=== PATIENT | female | born 1970 | race Caucasian/White ===

== ENCOUNTER 2018-04-14 05:57 | Emergency (ER) | payer BC ==
[2018-04-14] MEDS ORDERED: Ketorolac 60 MG/2 ML SDV IM ONE (06:13)
[2018-04-14] MEDS ORDERED: Ondansetron 4 MG Tab.DIS PO ONE (06:13)
[2018-04-14] MEDS ORDERED: Lactated Ringers 1,000 ML IV ONE ×2 (06:26→08:23)
[2018-04-14] MEDS ORDERED: Sodium Chloride 0.9% 10 ML Syringe FLUSH PRN (06:26)
--- NOTE | 2018-04-14 06:29 | EDM.PDOC ---
<Vahe Dhillon G - Last Filed: 04/14/18 12:02> ED HPI GENERAL MEDICAL PROBLEM - General Chief Complaint: Flank Pain Stated Complaint: KIDNEY STONE Time Seen by Provider: 04/14/18 06:23 Right Flank Pain Score (Numeric/FACES): 7 - Related Data Allergies Allergy/AdvReac Type Severity Reaction Status Date / Time No Known Allergies Allergy Verified 04/14/18 06:04 Home Meds: Home Meds Acetaminophen/oxyCODONE [Percocet 325-7.5 MG] 1 - 2 tab PO Q4H PRN #10 tab 04/14 [Rx] Cephalexin 500 mg PO TID #14 tablet 04/14/18 [Rx] Lisinopril 1 tab PO DAILY 04/14/18 [History] Ondansetron [Zofran ODT] 4 mg PO Q6H PRN #7 tab.dis 04/14/18 [Rx] Course - Vital Signs Text/Narrative:: Sleeping peacefully when checked @ 1200h, says she's been sleeping about an hour. Last Recorded V/S: Last Vital Signs Temp 97.6 F 04/14/18 13:11 Pulse 71 04/14/18 13:36 Resp 16 04/14/18 13:36 BP 120/68 04/14/18 13:36 Pulse Ox 97 04/14/18 13:36 - Orders/Labs/Meds Orders: Active Orders 24 hr Category Date Time Status Peripheral IV Care [RC] . DIRECTED Care 04/14/18 06:26 Active Abdomen Pelvis wo Cont [CT] Stat Exams 04/14/18 06:26 Taken CULTURE URINE [RM] Stat Lab 04/14/18 10:07 Ordered UA W/MICROSCOPIC [URIN] Urgent Lab 04/14/18 09:33 Ordered Peripheral IV Insertion Adult [OM.PC] Urgent Oth 04/14/18 06:25 Ordered Labs: Laboratory Tests 04/14/18 04/14/18 04/14/18 Range/Units 07:02 07:02 09:33 WBC 8.5 (4.5-11.0) K/uL RBC 3.93 (3.30-5.50) M/uL Hgb 11.8 L (12.0-15.0) g/dL Hct 36.4 (36.0-48.0) % MCV 93 (80-98) fL MCH 30 (27-31) pg MCHC 32 (32-36) % Plt Count 254 (150-400) K/uL Neut % (Auto) 69 H (36-66) % Lymph % (Auto) 23 L (24-44) % [place] % (Auto) 6 (2-6) % Eos % (Auto) 2 (2-4) % Baso % (Auto) 1 (0-1) % Sodium 139 L (140-148) mmol/L Potassium 3.7 (3.6-5.2) mmol/L Chloride 105 (100-108) mmol/L Carbon Dioxide 25 (21-32) mmol/L Anion Gap 12.7 (5.0-14.0) mmol/L BUN 13 (7-18) mg/dL Creatinine 0.9 (0.6-1.0) mg/dL Est Cr Clr Drug Dosing 58.94 mL/min Estimated GFR (MDRD) > 60 (>60) Glucose 201 H (74-106) mg/dL Calcium 8.1 L (8.5-10.1) mg/dL Urine Color Yellow Urine Appearance Turbid Urine pH 5.0 (4.5-8.0) Ur Specific [place] 1.030 (1.008-1.030) Urine Protein Trace (NEGATIVE) mg/dL Urine Glucose (UA) 250 H (NEGATIVE) mg/dL Urine Ketones 15 H (NEGATIVE) mg/dL Urine Occult Blood Large (NEGATIVE) Urine Nitrite Negative (NEGATIVE) Urine Bilirubin Small (NEGATIVE) Urine Urobilinogen Normal (NORMAL) mg/dL Ur Leukocyte Esterase Moderate (NEGATIVE) Urine RBC 0-5 (0-5) Urine WBC 10-20 H (0-5) Ur Epithelial Cells Many Amorphous Sediment Many Urine Bacteria Moderate Urine Mucus Not seen Meds: Medications Discontinued Medications Generic Name Dose Route Start Last Admin Trade Name Freq PRN Reason Stop Dose Admin Cephalexin 500 mg 04/14/18 10:04 04/14/18 10:32 Keflex PO 04/14/18 10:05 500 mg ONETIME ONE Administration Fentanyl 50 mcg 04/14/18 06:34 04/14/18 06:38 Sublimaze IVPUSH 04/14/18 06:35 50 mcg ONETIME ONE Administration Fentanyl 100 mcg 04/14/18 07:17 04/14/18 07:28 Sublimaze IVPUSH 04/14/18 07:18 100 mcg ONETIME ONE Administration Fentanyl 100 mcg 04/14/18 08:05 04/14/18 08:17 Sublimaze IVPUSH 04/14/18 08:06 100 mcg ONETIME ONE Administration Hydromorphone HCl 0.5 mg 04/14/18 10:25 04/14/18 10:32 Dilaudid IVPUSH 04/14/18 10:26 0.5 mg ONETIME ONE Administration Lactated Ringer's 1,000 mls @ 999 mls/hr 04/14/18 06:26 04/14/18 06:39 Ringers, Lactated IV 04/14/18 07:26 999 mls/hr BOLUS ONE Administration Lactated Ringer's 1,000 mls @ 999 mls/hr 04/14/18 08:23 04/14/18 08:25 Ringers, Lactated IV 04/14/18 09:23 999 mls/hr BOLUS ONE Administration Ketorolac Tromethamine 60 mg 04/14/18 06:13 04/14/18 06:17 Toradol IM 04/14/18 06:14 60 mg ONETIME ONE Administration Lidocaine HCl 120 mg 04/14/18 09:32 04/14/18 09:52 Xylocaine 2% 1 mg/kg (120 mg) 04/14/18 09:33 120 mg IVPUSH Administration ONETIME ONE Ondansetron HCl 4 mg 04/14/18 06:13 04/14/18 06:17 Zofran Odt PO 04/14/18 06:14 4 mg ONETIME ONE Administration Ondansetron HCl 4 mg 04/14/18 07:15 04/14/18 07:26 Zofran IVPUSH 04/14/18 07:16 4 mg ONETIME ONE Administration Oxycodone/Acetaminophen 1 tab 04/14/18 13:19 04/14/18 13:25 Percocet 325-5 Mg PO 04/14/18 13:20 1 tab ONETIME ONE Administration Sodium Chloride 10 ml 04/14/18 06:26 04/14/18 06:39 Saline Flush FLUSH 10 ml ASDIRECTED PRN Administration Keep Vein Open - Radiology Interpretation Free Text/Narrative:: 2 mm stone at the R UPJ per CT with stone protocol. CT Results Date: 04/14/18 CT Results Time: 07:50 Departure - Departure Disposition: Home, Self-Care 01 Clinical Impression: Right flank pain - Discharge Information Prescriptions: Acetaminophen/oxyCODONE [Percocet 325-7.5 MG] 1 - 2 tab PO Q4H PRN #10 tab PRN Reason: Pain Cephalexin 500 mg PO TID #14 tablet Ondansetron [Zofran ODT] 4 mg PO Q6H PRN #7 tab.dis PRN Reason: Nausea Instructions: Kidney Stones, [id number] Referrals: PCP,None [Primary Care Provider] - Forms: ED Department Discharge Additional Instructions: Drink ample fluids. Take Rx as directed. Strain your urine and save any sediment for testing. Recheck in the clinic on , call for an appt. Return as needed. No driving when taking Percocet. - My Orders Last 24 Hours: My Active Orders 04/14/18 06:25 Peripheral IV Insertion Adult [OM.PC] Urgent 04/14/18 06:26 Peripheral IV Care [RC] . DIRECTED Abdomen Pelvis wo Cont [CT] Stat 04/14/18 09:33 UA W/MICROSCOPIC [URIN] Urgent - Assessment/Plan Last 24 Hours: My Active Orders 04/14/18 06:25 Peripheral IV Insertion Adult [OM.PC] Urgent 04/14/18 06:26 Peripheral IV Care [RC] . DIRECTED Abdomen Pelvis wo Cont [CT] Stat 04/14/18 09:33 UA W/MICROSCOPIC [URIN] Urgent <EmilyrTom - Last Filed: 04/15/18 06:54> ED HPI GENERAL MEDICAL PROBLEM - General Source of Information: Reports: Patient, Family, RN Notes Reviewed History Limitations: Reports: No Limitations - History of Present Illness INITIAL COMMENTS - FREE TEXT/NARRATIVE: 47-year-old female presents to the emergency department complaint of right flank pain, she has a known history of nephrolithiasis she feels this is very similar pain is really developed over the last 12 hours has nausea and vomiting pain starts in her low back shoots down into her leg Past Medical History HEENT History: Reports: Impaired Vision Cardiovascular History: Reports: Hypertension Genitourinary History: Reports: Renal Calculus [employer] SPECIALIST History: Reports: Musculoskeletal History: Reports: Fracture - Infectious Disease History Infectious Disease History: Reports: Chicken Pox Social & Family History - Family History Family Medical History: Noncontributory - Tobacco Use Smoking Status *Q: Never Smoker - Caffeine Use Caffeine Use: Reports: Coffee - Recreational Drug Use Recreational Drug Use: No ED ROS GENERAL - Review of Systems Review Of Systems: See Below Constitutional: Denies: Fever, Chills HEENT: Reports: No Symptoms Respiratory: Reports: No Symptoms Cardiovascular: Reports: No Symptoms GI/Abdominal: Reports: Nausea, Vomiting : Reports: Flank Pain Musculoskeletal: Reports: No Symptoms Skin: Reports: No Symptoms ED EXAM, RENAL/ - Physical Exam Exam: See Below Exam Limited By: No Limitations General Appearance: Alert, Mild Distress Respiratory/Chest: No Respiratory Distress, Lungs Clear, Normal Breath Sounds, No Accessory Muscle Use Cardiovascular: Regular Rate, Rhythm, No Murmur GI/Abdominal: Soft, Tender (Along the right flank area) Back Exam: Normal Inspection, Full Range of Motion, CVA Tenderness (R). No: CVA Tenderness (L) Extremities: Normal Inspection Course - Orders/Labs/Meds Labs: Laboratory Tests 04/14/18 04/14/18 04/14/18 Range/Units 07:02 07:02 09:33 WBC 8.5 (4.5-11.0) K/uL RBC 3.93 (3.30-5.50) M/uL Hgb 11.8 L (12.0-15.0) g/dL Hct 36.4 (36.0-48.0) % MCV 93 (80-98) fL MCH 30 (27-31) pg MCHC 32 (32-36) % Plt Count 254 (150-400) K/uL Neut % (Auto) 69 H (36-66) % Lymph % (Auto) 23 L (24-44) % [place] % (Auto) 6 (2-6) % Eos % (Auto) 2 (2-4) % Baso % (Auto) 1 (0-1) % Sodium 139 L (140-148) mmol/L Potassium 3.7 (3.6-5.2) mmol/L Chloride 105 (100-108) mmol/L Carbon Dioxide 25 (21-32) mmol/L Anion Gap 12.7 (5.0-14.0) mmol/L BUN 13 (7-18) mg/dL Creatinine 0.9 (0.6-1.0) mg/dL Est Cr Clr Drug Dosing 58.94 mL/min Estimated GFR (MDRD) > 60 (>60) Glucose 201 H (74-106) mg/dL Calcium 8.1 L (8.5-10.1) mg/dL Urine Color Yellow Urine Appearance Turbid Urine pH 5.0 (4.5-8.0) Ur Specific [place] 1.030 (1.008-1.030) Urine Protein Trace (NEGATIVE) mg/dL Urine Glucose (UA) 250 H (NEGATIVE) mg/dL Urine Ketones 15 H (NEGATIVE) mg/dL Urine Occult Blood Large (NEGATIVE) Urine Nitrite Negative (NEGATIVE) Urine Bilirubin Small (NEGATIVE) Urine Urobilinogen Normal (NORMAL) mg/dL Ur Leukocyte Esterase Moderate (NEGATIVE) Urine RBC 0-5 (0-5) Urine WBC 10-20 H (0-5) Ur Epithelial Cells Many Amorphous Sediment Many Urine Bacteria Moderate Urine Mucus Not seen Departure - Departure Time of Disposition: 06:48
[2018-04-14] MEDS ORDERED: fentaNYL 100 MCG/2 ML SDV IVPUSH ONE ×3 (06:34→08:05)
[2018-04-14] MEDS ORDERED: Ondansetron 4 MG/2 ML SDV IVPUSH ONE (07:15)
[2018-04-14] MEDS ORDERED: Lidocaine 2% 100 MG/5 ML Syringe IVPUSH ONE (09:32)
[2018-04-14] MEDS ORDERED: Cephalexin 250 MG Cap PO ONE (10:04)
[2018-04-14] MEDS ORDERED: HYDROmorphone 0.5 MG/0.5 ML Syringe IVPUSH ONE (10:25)
[2018-04-14] MEDS ORDERED: Acetaminophen/oxyCODONE 325-5 MG Tab PO ONE (13:19)
== END 2018-04-14 13:53 | disposition home or self-care (01) ==
LOC: JP.ED 05:57
DX: R10.9 Unspecified abdominal pain (principal); I10 Essential (primary) hypertension; Z79.899 Other long term (current) drug therapy
CPT/HCPCS: 36415; 74176; 80048; 81001; 85025; 87086; 96361; 96372; 96374; 96375; 96376; 99284; A9270; J1170; J1885; J2405; J3010; J7050; J7120

== ENCOUNTER 2021-08-29 04:33 | Emergency (ER) | payer BC ==
[2021-08-29] MEDS ORDERED: Ketorolac 30 MG/ML SDV IM ONE (05:02)
[2021-08-29] MEDS ORDERED: Ondansetron 4 MG Tab.DIS PO ONE (05:02)
--- NOTE | 2021-08-29 05:05 | EDM.PDOC ---
ED HPI GENERAL MEDICAL PROBLEM - General Chief Complaint: Abdominal Pain Stated Complaint: KIDNEY STONES? Time Seen by Provider: 08/29/21 05:00 Source of Information: Reports: Patient, Family, RN Notes Reviewed History Limitations: Reports: No Limitations - History of Present Illness INITIAL COMMENTS - FREE TEXT/NARRATIVE: 51-year-old female presents emergency department day complaint of left flank pain she states it come on suddenly early this morning she has had kidney stones in the past the pain will get really intense and then relax. No fevers is nauseated has not taken anything for the pain Left Flank Pain Score (Numeric/FACES): 4 - Related Data Allergies Allergy/AdvReac Type Severity Reaction Status Date / Time No Known Allergies Allergy Verified 08/29/21 04:43 Home Meds: Home Meds Lisinopril 1 tab PO DAILY 04/14/18 [History] Norethindrone 1 tab PO DAILY 08/29/21 [History] Omeprazole 40 mg PO DAILY 08/29/21 [History] metFORMIN [Glucophage] 500 mg PO DAILY 08/29/21 [History] Past Medical History HEENT History: Reports: Impaired Vision Cardiovascular History: Reports: Hypertension Gastrointestinal History: Reports: GERD Genitourinary History: Reports: 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 History: Reports: Fracture Endocrine/Metabolic History: Reports: Diabetes, Type II - Infectious Disease History Infectious Disease History: Reports: Chicken Pox Social & Family History - Family History Family Medical History: No Pertinent Family History - Tobacco Use Tobacco Use Status *Q: Never Tobacco User Second Hand Smoke Exposure: No - Caffeine Use Caffeine Use: Reports: Coffee - Recreational Drug Use Recreational Drug Use: No ED ROS GENERAL - Review of Systems Review Of Systems: See Below Constitutional: Reports: No Symptoms Respiratory: Reports: No Symptoms Cardiovascular: Reports: No Symptoms GI/Abdominal: Reports: Abdominal Pain, Nausea : Reports: Flank Pain ED EXAM, GI/ABD - Physical Exam Exam: See Below Exam Limited By: No Limitations General Appearance: Alert, WD/WN, No Apparent Distress Respiratory/Chest: No Respiratory Distress, Lungs Clear, Normal Breath Sounds, No Accessory Muscle Use, Chest Non-Tender Cardiovascular: Regular Rate, Rhythm, No Murmur GI/Abdominal Exam: Soft, Tender (Tender along the left flank) Course - Vital Signs Last Recorded V/S: Last Vital Signs Temp 97.6 F 08/29/21 04:49 Pulse 78 08/29/21 05:30 Resp 16 08/29/21 05:30 BP 156/94 H 08/29/21 05:30 Pulse Ox 93 L 08/29/21 05:30 - Orders/Labs/Meds Orders: Active Orders 24 hr Category Date Time Status Sodium Chloride 0.9% [Normal Saline] 1,000 ml Med 08/29/21 05:15 Active IV ASDIRECTED Medication Orders Sodium Chloride (Normal Saline) 1,000 mls @ 500 mls/hr IV ASDIRECTED JOSE D Last Admin: 08/29/21 05:22 Dose: 500 mls/hr Documented by: RAGINI Labs: Laboratory Tests 08/29/21 Range/Units 04:59 Urine Color Yellow (YELLOW) Urine Appearance Cloudy A (CLEAR) Urine pH 5.5 (5.0-8.0) Ur Specific [place] >= 1.030 (1.008-1.030) Urine Protein 100 H (NEGATIVE) mg/dL Urine Glucose (UA) Negative (NEGATIVE) mg/dL Urine Ketones Negative (NEGATIVE) mg/dL Urine Occult Blood Large H (NEGATIVE) Urine Nitrite Negative (NEGATIVE) Urine Bilirubin Small H (NEGATIVE) Urine Urobilinogen 0.2 (0.2-1.0) EU/dL Ur Leukocyte Esterase Small H (NEGATIVE) Urine RBC >100 H (0-5) Urine WBC 10-20 H (0-5) Ur Epithelial Cells Moderate Amorphous Sediment Not seen Urine Bacteria Moderate Urine Mucus Not seen Meds: Medications Generic Name Dose Route Start Last Admin Trade Name Freq PRN Reason Stop Dose Admin Sodium Chloride 1,000 mls @ 500 mls/hr 08/29/21 05:15 08/29/21 05:22 Normal Saline IV 500 mls/hr ASDIRECTED JOSE D Administration Discontinued Medications Generic Name Dose Route Start Last Admin Trade Name Freq PRN Reason Stop Dose Admin Ketorolac Tromethamine 30 mg 08/29/21 05:02 08/29/21 05:50 Ketorolac 30 Mg/Ml Sdv IM 08/29/21 05:03 Not Given ONETIME ONE Ketorolac Tromethamine 30 mg 08/29/21 05:09 08/29/21 05:16 Ketorolac 30 Mg/Ml Sdv IVPUSH 08/29/21 05:10 30 mg ONETIME ONE Administration Ondansetron HCl 4 mg 08/29/21 05:02 08/29/21 05:10 Ondansetron 4 Mg Tab.Dis PO 08/29/21 05:03 4 mg ONETIME ONE Administration Ondansetron HCl 4 mg 08/29/21 05:09 08/29/21 05:25 Ondansetron 4 Mg/2 Ml Sdv IVPUSH 08/29/21 05:10 4 mg ONETIME ONE Administration Departure - Departure Time of Disposition: 07:13 Disposition: Home, Self-Care 01 Condition: Fair Clinical Impression: Nephrolithiasis - Discharge Information Instructions: Kidney Stones, [id number] Referrals: PCP,None [Primary Care Provider] - Forms: ED Department Discharge Additional Instructions: Use Pyridium as needed for bladder spasms, use Toradol as needed for pain control, please followup with your primary care provider in 3-5 days if not better, please call return to the emergency department with worsening of symptoms. Sepsis Event Note (ED) - Evaluation Sepsis Screening Result: No Definite Risk - Focused Exam Vital Signs: Vital Signs Temp Pulse Resp BP Pulse Ox 08/29/21 05:30 78 16 156/94 H 93 L 08/29/21 04:49 97.6 F 78 14 143/81 H 98 - My Orders Last 24 Hours: My Active Orders 08/29/21 05:15 Sodium Chloride 0.9% [Normal Saline] 1,000 ml IV ASDIRECTED - Assessment/Plan Last 24 Hours: My Active Orders 08/29/21 05:15 Sodium Chloride 0.9% [Normal Saline] 1,000 ml IV ASDIRECTED Plan: Assessment Acuity = acute Site and laterality = left-sided ureter distal nephrolithiasis Etiology = unknown Manifestations = flank pain Location of injury = Home Lab values = CT scan describes the stone above urinalysis reveals large amount of blood consistent with hematuria 10-20 WBCs consistent with pyuria Plan Good relief with Toradol and Zofran in the emergency department prescription for Toradol 10 mg 1 tab p.o. 3 times daily as needed as well as Pyridium 200 mg 1 tab p.o. 3 times daily x3 days follow-up primary care 3 to 5 days if no improvement This note was dictated using [employer] voice recognition software please call with any questions on syntax or grammar.
[2021-08-29] MEDS ORDERED: Ketorolac 30 MG/ML SDV IVPUSH ONE (05:09)
[2021-08-29] MEDS ORDERED: Ondansetron 4 MG/2 ML SDV IVPUSH ONE (05:09)
[2021-08-29] MEDS ORDERED: Sodium Chloride 0.9% 1,000 ML IV SCH (05:15)
--- NOTE | 2021-08-29 07:02 | CRLCT ---
For Patients: As a result of the Century Cures Act, medical imaging exams and procedure reports are released immediately into your electronic medical record. You may view this report before your referring provider. If you have questions, please contact your health care provider. Indication: Left flank pain Technique: Volumetric multidetector CT images of the abdomen and pelvis were without the administration of intravenous contrast. Comparison: CT abdomen and pelvis April 14, 2018 Findings: The lung bases are clear. The liver is enlarged with moderate to severe pack steatosis and hepatomegaly. There are calcified gallstones seen within dependent gallbladder. There is no significant common biliary ductal dilatation or abrupt cut off. The spleen is normal in attenuation and size. The stomach and duodenum are grossly unremarkable. The pancreas is normal in attenuation without significant atrophy. The adrenal glands are unremarkable. There are extensive parapelvic renal cystic changes of the bilateral kidneys with mild left-sided hydronephrosis and hydroureter with demonstration of a 3.1 millimeter calculus at the left ureteral vesicular junction. There is minimal stool seen throughout the colon which is overall moderately well decompressed. There is minimal distal colonic diverticulosis without evidence of diverticulitis. The appendix is unremarkable. There is no significant mesenteric, retroperitoneal, or pelvic sidewall lymph nodes. The aorta is nonaneurysmal. There is no significant atherosclerotic disease appreciated. The solid pelvic viscera are grossly unremarkable. There is no free fluid or free air. The anterior abdominal wall is intact without significant hernias. The lumbar vertebral body heights are grossly maintained in satisfactory alignment without evidence of displaced fracture, lytic or blastic lesion. Impression: Demonstration of left-sided hydronephrosis with a 3.1 millimeter calculus in the distal left ureter just at the ureterovesicular junction. Moderate to severe parapelvic cystic changes of the kidneys. Hepatomegaly and hepatic steatosis. Cholelithiasis without acute cholecystitis. Please note that all CT scans at this facility use dose modulation, iterative reconstruction, and/or weight-based dosing when appropriate to reduce radiation dose to as low as reasonably achievable. Dictated by Davis Barahona MD @ 08/29/2021 7:01:04 AM (Electronically Signed)
== END 2021-08-29 07:30 | disposition home or self-care (01) ==
LOC: JP.ED 04:33
DX: N13.2 Hydronephrosis with renal and ureteral calculous obstruction (principal); I10 Essential (primary) hypertension; K21.9 Gastro-esophageal reflux disease without esophagitis; E11.9 Type 2 diabetes mellitus without complications; Z79.84 Long term (current) use of oral hypoglycemic drugs; Z79.899 Other long term (current) drug therapy
CPT/HCPCS: 74176; 81001; 96374; 96375; 99284; A9270; J1885; J2405; J7030